=== PATIENT | male | born 1990 | race Hispanic/Latino ===

== ENCOUNTER → 2023-11-01 | Emergency (ER) | payer OTHER ==
[~2023-11-01] MED LIST: ACETAMINOPHEN 500 MG TAB ONE; METRONIDAZOLE 500mg IVPB 500 MG/100 ML BAG IV ONE; MORPHINE 4 MG/ML SYR ONE; NA CHLORIDE 0.9% 1,000 ML ONE; NA CHLORIDE 0.9% 100 ML ONE; PIPERACIL/TAZO 3.375 GM VIAL IV ONE
--- OUTSIDE RECORDS SUMMARY | 2023-11-01 14:57 | XMS REPORT | Continuity of Care Document ---
Author Name Unknown Address [address] [facility] [address] [place] [address] [facility] thconnect Address [address] [facility] [address] [place] [address] Care Team Providers Care Vehicle Delivery Worker Name Role Phone PCP, PATIENT DOES NOT HAVE A Primary Care Physic thomas Unavailable ANNABELLA RODRIGUEZ Attending Clinician Unavailable JAMIE GARCIA Attending Clinician Unavailable MD JAY JAY Attending Clinician Unavailab CHERYL Herndon Attending Clinician Unavailab VERONIKA Pascual Attending Clinician Unavailab Veronika Pascual DO Attending Clinician LIAT CLOUD Attending Clinician Unavailab le LAB03 Attending Clinician Unavailable KERRIE SOLIS Attending Clinician Unavailable Kerrie Solis MD Attending Clinician [phone] VERONIKA PITTS Admitting Clinician Unavailab KERRIE Joiner Admitting Clinician Unavailable Payers Payer Name Policy Type Policy Number Effective Date Expirati on Date Source [employer] [facility] [employer] 94 ON 9 [id number] 2023 00:00:00 [employer] COMMERCIAL OUT OF NETWORK [id number] 2023 00:00:00 Problems Condition Name Condition Details Condition Category Status Onset Date Resolution Date Last Treatment Date Treating Clinician Comments Source No known active problems No known active problems Disease [facility] Allergies, Adverse Reactions, Alerts Allergy Name Allergy Type Status Severity Reaction(s) Onset Date Inactive Date Treating Clinician Comments Source NO KNOWN ALLERGIE S Drug Class Active [facility] Social History Social Habit Start Date Stop Date Quantity Comments Source [facility] intake 2023-10-20 00:00:00 2023-10-20 00:00:00 Current drinker of alcohol (finding) Jeniffer Jones - External Tobacco use and exposure 2023-10-05 00:00:00 2023-10-05 00:00:00 Smokeless tobacco non-user Jeniffer Jones - External History of Social function 2023-10-05 00:00:00 2023-10-05 00:00:00 Jeniffer Jones - External Alcohol Comment 2023-10-05 00:00:00 2023-10-05 00:00:00 ocass. Jeniffer Jones - External Exposure to SARS-CoV-2 (event) 2022-03-18 00:00:00 2022-03-28 22:40:00 Not sure [facility] Sex Assigned At 1990 00:00:00 1990 00:00:00 Jeniffer Jones - External Smoking Status Start Date Stop Date Source Tobacco smoking consumption unknown [facility] Never smoked tobacco Jeniffer Jones - External Medications Ordered Medication Name Filled Medication Name Start Date Stop Date Current Medication? Ordering Clinician Indication Dosage Frequency Signature (SIG) Comments Components Source TRIMETHOPRI M-SULFAMETH OXAZOLE (Bactrim DS) 800-160 MG oral Tablet 10-20 00:00: 00 10-27 05:59 :00 Yes 1{tbl} Take 1 tablet by mouth every 12 hours for 7 days. Jeniffer Jones - Externa l Tramadol HCl (ULTRAM) 50 MG oral Tablet 10-20 00:00: 00 10-26 05:59 :00 Yes [id number] 50mg Q.25D Take 1 tablet (50 mg total) by mouth every 6 hours as needed for pain for up to 6 days. Jeniffer monsalve amoxicillin -clavulanat e (AUGMENTIN) 875-125 mg per tablet 1 tablet 10-09 06:45: 00 10-09 06:22 :00 No 1{tbl} 1 tablet, Oral, ONCE, 1 dose, On 10/09/23 at 0045, Routine
Reason for Anti-Infec tive: Documented Infection< br>Documen pao Infection Site: Abdominal< br>Duratio n of Therapy: 7 days [facility] iopamidol (ISOVUE 370-500 mL) injection 90 mL 10-09 05:45: 00 10-09 05:45 :00 No [id number] 90mL 90 mL, Intravenou s, ONCE, 1 dose, On Wed10/08/23 at 2345, Routine [facility] amoxicillin -clavulanat e 875-125 mg per tablet 10-08 00:00: 00 10-19 05:59 :00 Yes [id number] 1{tbl} Take 1 tablet by mouth every 12 (twelve) hours for 10 days. [facility] cefTRIAXone (ROCEPHIN) 350 mg/mL in Lidocaine 1 % injection 1,000 mg 10-06 03:00: 00 10-06 03:00 :00 Yes 1000mg 1,000 mg, Intramuscu lar, ONCE, 1 dose, On Wed10/05/23 at 2100, MICHELLE
Re ason for Anti-Infec tive: Documented Infection< br>Documen pao Infection Site: Urine
D uration of Therapy: Other (see Comments) [facility] Nitrofurant oin Monohyd Macro (Macrobid) 100 MG oral Capsule 10-06 00:00: 00 Yes [id number] 100mg Take 1 capsule (100 mg total) by mouth 2 times daily. Jeniffer monsalve cefUROXime 500 mg tablet 10-05 00:00: 00 10-16 05:59 :00 Yes [id number] 500mg Take 1 tablet by mouth in the morning and 1 tablet in the evening. Do all this for 10 days. [facility] cefUROXime 500 mg tablet 13 00:00: 00 10-08 00:00 :00 No [id number] 500mg Take 1 tablet by mouth in the morning and 1 tablet in the evening. Do all this for 10 days. [facility] iopamidol (ISOVUE 370-500 mL) injection 60 mL 03-29 06:45: 00 03-29 06:45 :00 No [id number] 60mL 60 mL, Intravenou s, ONCE, 1 dose, On 03/29/22 at 0145, Routine [facility] piperacilli n-tazobacta m (ZOSYN) 3.375 g in NaCl 0.9% (NS) 50 mL MINI-BAG 03-29 06:30: 00 03-29 07:05 :00 No 3.375g 3.375 g, IV Piggyback, ONCE, 1 dose, On 03/29/22 at 0130, Administer over 30 Minutes, 50 mL
Reas on for Anti-Infec tive: Documented Infection< br>Documen pao Infection Site: Abdominal< br>Duratio n of Therapy: Other (see Comments) [facility] ketorolac (TORADOL) injection 30 mg 03-29 06:00: 00 03-29 05:08 :00 No 30mg 30 mg, Slow IV Push, ONCE, 1 dose, On 03/29/22 at 0100, Routine [facility] amoxicillin -clavulanat e 875-125 mg per tablet 03-29 00:00: 00 Yes [id number] 1{tbl} Take 1 tablet by mouth every 12 (twelve) hours. [facility] ondansetron (ZOFRAN) 4 mg tablet 03-29 00:00: 00 Yes [id number] 4mg Take 1 tablet by mouth every 8 (eight) hours as needed for Nausea and Vomiting (N/V). [facility] traMADoL (ULTRAM) 50 mg tablet 03-29 00:00: 00 Yes [id number] 50mg Take 1 tablet by mouth every 6 (six) hours as needed for Pain (scale 7-10). Indication s: acute pain [facility] amoxicillin -clavulanat e 875-125 mg per tablet 8 00:00: 00 Yes [id number] 1{tbl} Take 1 tablet by mouth every 12 (twelve) hours. [facility] ondansetron (ZOFRAN) 4 mg tablet 03-29 00:00: 00 Yes [id number] 4mg Take 1 tablet by mouth every 8 (eight) hours as needed for Nausea and Vomiting (N/V). [facility] traMADoL (ULTRAM) 50 mg tablet 03-29 00:00: 00 Yes [id number] 50mg Take 1 tablet by mouth every 6 (six) hours as needed for Pain (scale 7-10). Indication s: acute pain [facility] amoxicillin -clavulanat e 875-125 mg per tablet 03-29 00:00: 00 10-08 00:00 :00 No [id number] 1{tbl} Take 1 tablet by mouth every 12 (twelve) hours. [facility] ondansetron (ZOFRAN) 4 mg tablet 03-29 00:00: 00 10-08 00:00 :00 No [id number] 4mg Take 1 tablet by mouth every 8 (eight) hours as needed for Nausea and Vomiting (N/V). [facility] traMADoL (ULTRAM) 50 mg tablet 03-29 00:00: 00 10-08 00:00 :00 No [id number] 50mg Take 1 tablet by mouth every 6 (six) hours as needed for Pain (scale 7-10). Indication s: acute pain [facility] amoxicillin -clavulanat e 875-125 mg per tablet 8- 00:00: 00 03-29 00:00 :00 No [id number] 1{tbl} Take 1 tablet by mouth every 12 (twelve) hours. [facility] traMADoL (ULTRAM) 50 mg tablet 03-29 00:00: 00 03-29 00:00 :00 No [id number] 50mg Take 1 tablet by mouth every 6 (six) hours as needed for Pain (scale 7-10). Indication s: acute pain [facility] ondansetron (ZOFRAN) 4 mg tablet 03-29 00:00: 00 03-29 00:00 :00 No [id number] 4mg Take 1 tablet by mouth every 8 (eight) hours as needed for Nausea and Vomiting (N/V). [facility] methocarbam ol (ROBAXIN) 500 mg tablet 2018-08 00:00: 00 Yes [id number] 500mg Take 1 tablet by mouth 3 (three) times daily as needed for Pain (scale 4-6). [facility] ibuprofen 600 mg tablet 2018-08 00:00: 00 Yes [id number] 600mg Take 1 tablet by mouth every 6 (six) hours as needed for Pain (scale 4-6). [facility] methocarbam ol (ROBAXIN) 500 mg tablet 2018-08 00:00: 00 Yes [id number] 500mg Take 1 tablet by mouth 3 (three) times daily as needed for Pain (scale 4-6). [facility] ibuprofen 600 mg tablet 2018-08 00:00: 00 Yes [id number] 600mg Take 1 tablet by mouth every 6 (six) hours as needed for Pain (scale 4-6). [facility] methocarbam ol (ROBAXIN) 500 mg tablet 2018-08 00:00: 00 10-08 00:00 :00 No [id number] 500mg Take 1 tablet by mouth 3 (three) times daily as needed for Pain (scale 4-6). [facility] ibuprofen 600 mg tablet 2018-08 00:00: 00 10-08 00:00 :00 No [id number] 600mg Take 1 tablet by mouth every 6 (six) hours as needed for Pain (scale 4-6). [facility] methylPREDN ISolone (MEDROL, TANNER,) 4 mg tablets 2018-08 00:00: 00 Yes [id number] Take by mouth SEE-INSTRU CTIONS. follow package directions [facility] methylPREDN ISolone (MEDROL, TANNER,) 4 mg tablets 2018-08 00:00: 00 Yes [id number] Take by mouth SEE-INSTRU CTIONS. follow package directions [facility] methylPREDN ISolone (MEDROL, TANNER,) 4 mg tablets 2018-08 00:00: 00 10-08 00:00 :00 No [id number] Take by mouth SEE-INSTRU CTIONS. follow package directions [facility] Vital Signs Vital Name Observation Time Observation Value Comments S anabellce Systolic blood pressure 2023-10-20 20:56:00 108 mm[Hg] Jeniffer Flores ld - External Diastolic blood pressure 2023-10-20 20:56:00 70 mm[Hg] Jeniffer ambrose - External Heart rate 2023-10-20 20:56:00 101 /min Rhett Jones - External Body temperature 2023-10-20 20:56:00 37 Maritza Jeniffer Jones - External Respiratory rate 2023-10-20 20:56:00 16 /min Jeniffer Jones - External Body height 2023-10-20 20:56:00 175.3 cm Karena mooney alma delia - External Body weight 2023-10-20 20:56:00 92.08 kg Karena Jones - External BMI 2023-10-20 20:56:00 29.98 kg/m2 Karena Jones - External Oxygen saturation in Arterial blood by Pulse oximetry 2023-10-20 20:56:00 99 /min Jeniffer ambrose - External Respiratory rate 2023-10-09 06:22:00 20 /min [facility] Oxygen saturation in Arterial blood by Pulse oximetry 2023-10-09 06:22:00 100 /min [facility] Systolic blood pressure 2023-10-09 06:22:00 128 mm[Hg] [facility] Diastolic blood pressure 2023-10-09 06:22:00 82 mm[Hg] [facility] Heart rate 2023-10-09 06:22:00 98 /min [facility] Body temperature 2023-10-09 06:22:00 37.44 Maritza [facility] Body height 2023-10-09 03:26:00 175.3 cm [facility] Body weight 2023-10-09 03:26:00 92.987 kg [facility] BMI 2023-10-09 03:26:00 30.27 kg/m2 [facility] Systolic blood pressure 2023-10-06 00:29:00 153 mm[Hg] [facility] Diastolic blood pressure 2023-10-06 00:29:00 97 mm[Hg] [facility] Heart rate 2023-10-06 00:29:00 83 /min [facility] Body temperature 2023-10-06 00:29:00 36.61 Maritza [facility] Respiratory rate 2023-10-06 00:29:00 18 /min [facility] Body height 2023-10-06 00:29:00 175.3 cm [facility] Body weight 2023-10-06 00:29:00 92.987 kg [facility] BMI 2023-10-06 00:29:00 30.27 kg/m2 [facility] Oxygen saturation in Arterial blood by Pulse oximetry 2023-10-06 00:29:00 99 /min [facility] Systolic blood pressure 2023-10-05 16:37:00 116 mm[Hg] Jeniffer Sanzybo ld - External Diastolic blood pressure 2023-10-05 16:37:00 78 mm[Hg] Jeniffer Seybo ld - External Heart rate 2023-10-05 16:37:00 71 /min Rhett steele Seybold - External Body temperature 2023-10-05 16:37:00 36.33 Maritza Jeniffer Seybold - External Respiratory rate 2023-10-05 16:37:00 18 /min Jeniffer Seybold - External Body height 2023-10-05 16:37:00 175.3 cm Karena mooney Seybold - External Body weight 2023-10-05 16:37:00 93.078 kg Karena Jones - External BMI 2023-10-05 16:37:00 30.30 kg/m2 Karena Jones - External Oxygen saturation in Arterial blood by Pulse oximetry 2023-10-05 16:37:00 97 /min Jeniffer Flores ld - External Systolic blood pressure 2022-03-29 06:00:00 124 mm[Hg] [facility] Diastolic blood pressure 2022-03-29 06:00:00 74 mm[Hg] [facility] Heart rate 2022-03-29 06:00:00 92 /min [facility] Body temperature 2022-03-29 06:00:00 37.44 Maritza [facility] Respiratory rate 2022-03-29 06:00:00 18 /min [facility] Oxygen saturation in Arterial blood by Pulse oximetry 2022-03-29 06:00:00 95 /min [facility] Body height 2022-03-29 03:38:00 175.3 cm [facility] Body weight 2022-03-29 03:38:00 79.379 kg [facility] BMI 2022-03-29 03:38:00 25.84 kg/m2 [facility] Procedures Procedure Date / Time Performed Performing Clinicia n Source CT ABDOMEN PELVIS W CONTRAST 2023-10-09 04:56:16 Veronika Pitts [facility] COMP. METABOLIC PANEL ([id number]) 2023-10-09 04:01:00 Veronika Pitts [facility] CBC WITH DIFF 2023-10-09 04:01:00 [facility]EF[facility] 2023-10-09 03:42:35 Docto r Unassigned, Haena [facility] CONSENT/REFUSAL FOR DIAGNOSIS AND TREATMENT 2023-10-09 03:17:28 Doctor Unassigned, Haena [facility] ASSIGNMENT OF BENEFITS 2023-10-06 01:49:21 Docto r Unassigned, Haena [facility] URINALYSIS 2023-10-06 00:53:00 Veronika Pitts Un [facility] NOTICE OF PRIVACY PRACTICES 2023-10-06 00:19:42 Doctor Unassigned, Haena [facility] CONSENT/REFUSAL FOR DIAGNOSIS AND TREATMENT 2023-10-06 00:18:43 Doctor Unassigned, Haena [facility] CT ABDOMEN PELVIS W CONTRAST 2022-03-29 05:32:05 Kerrie Solis [facility] LIPASE 2022-03-29 04:57:00 Kerrie Solis [facility] COMP. METABOLIC PANEL ([id number]) 2022-03-29 04:57:00 Kerrie Solis [facility] CBC WITH DIFF 2022-03-29 04:57:00 Kerrie Solis [facility] URINALYSIS 2022-03-29 04:57:00 Kerrie Solis [facility] NOTICE OF PRIVACY PRACTICES 2022-03-29 03:32:21 Doctor Unassigned, Haena [facility] CONSENT/REFUSAL FOR DIAGNOSIS AND TREATMENT 2022-03-29 03:31:15 Doctor Unassigned, Haena [facility] Encounters Start Date/Time End Date/Time Encounter Type Admission Type Attending [facility] Care Facility Care Department Encounter ID Source 2023-11-10 08:30:00 2023-11-10 08:30:00 Outpatient ANNABELLA RODRIGUEZ [id number] [facility] 00:00:00 2023-11-01 00:00:00 Outpatient JAMIE GARCIA [id number] Jeniffer [facility] 2023-10-29 13:35:00 2023-10-29 13:35:00 Outpatient JENIFFER MCKINLEY [id number] [facility]iffer [facility] 2023-10-29 00:00:00 2023-10-29 00:00:00 Outpatient JENIFFER MCKINLEY [id number] [facility]23-10-22 14:30:00 2023-10-22 14:30:00 Outpatient JAMIE GARCIA [id number] Jeniffer [facility] 2023-10-21 00:00:00 2023-10-21 00:00:00 Outpatient MD [facility]IFFER HAGER [id number] [facility] 15:00:00 2023-10-20 15:00:00 Outpatient JENNIFER ANNABELLAVera MCKINLEY [id number] [facility] 2023-10-12 00:00:00 2023-10-12 00:00:00 Outpatient CHERYL SEYMOUR [id number] Jeniffer [facility] 2023-10-12 00:00:00 2023-10-12 00:00:00 Outpatient MD JENIFFER HAGER [id number] Jeniffer [facility] 2023-10-08 21:46:00 2023-10-09 00:23:00 Emergency X VERONIKA PITTS [facility] E[facility] [id number] [facility] 2023-10-08 21:46:00 2023-10-09 00:23:00 Emergency Veronika Pitts [facility] [id number] 4.2.7.2.686 [id number] [facility] 2023-10-06 00:00:00 2023-10-06 00:00:00 Outpatient CHERYL SEYMOUR [id number] Jeniffer [facility] 2023-10-05 18:33:00 2023-10-05 20:12:00 Emergency X ADELIAT TY [facility] E[facility] [id number] [facility] 2023-10-05 18:33:00 2023-10-05 20:12:00 Emergency AderiTania ochoarisa [facility] [id number] 350.1.13.10 4.2.7.2.686 [id number] [facility] 2023-10-05 11:30:00 2023-10-05 11:30:00 Outpatient LAB03 JENIFFER MCKINLEY [id number] [facility] 2023-10-05 10:45:00 2023-10-05 10:45:00 Outpatient CHERYL SEYMOUR [id number] Jeniffer Jones 2022-03-28 22:43:00 2022-03-29 02:14:00 Emergency X KERRIE SOLIS [facility] E[facility] [id number] [facility] 2022-03-28 22:43:00 2022-03-29 02:14:00 Emergency Kerrie Solis [facility] [id number] 350.1.13.10 4.2.7.2.686 [id number] [facility] Results Test Description Test Time Test Comments Results Resul t Comments Source CT ABDOMEN PELVIS W CONTRAST 2023-09-23 05:46:51 EXAM: CT ABDOMEN PELVIS W CONTRAST ORDERING CLINICIAN: ? ?VERONIKA ALVARADO HISTORY: Abdominal Pain. COMPARISON: 03/29/2022 TECHNIQUE: CT of the abdomen and pelvis with IV contrast. Coronal andsagittal reformatted images were obtained. CT performed according to [facility]. TECHNICAL QUALITY: Adequate CT OF THE ABDOMEN WITH IV CONTRAST:There is minimal basilar atelectasis. ? There is mild diffuse fatty infiltration of the liver. ?The gallbladder isnormal. The spleen is normal. The pancreas is normal. The adrenals arenormal. ?The kidneys are normal. The intraabdominal large and small bowelare normal. The appendix is seen in the right lower quadrant and is normal.The intra-abdominal vasculature is normal. There is no free fluid. ?Thereis no free air or pathologic lymphadenopathy. CT OF THE PELVIS WITH IV CONTRAST:Scattered diverticula are seen in the sigmoid. There is diffuse wallthickening with surrounding inflammatory changes of the mid sigmoid.Ill-defined fluid attenuation is noted in the wall of the mid sigmoid.There is no free air. The distal sigmoid and rectum appear unremarkable.Prosta te is normal in size. The distal ureters and bladder are normal. ?Asmall amount of fluid is seen in the pelvis. Soft tissues are unremarkable. Osseous structures are unremarkable. [facility] ([id number])2023-10-09 04:34:45* Test Item Value Reference Range Interpretation Comme nts NA (test code = 2011354117) 137 mmol/L 135-145 K (test code = 8514620647) 4.0 mmol/L 3.5-5.0 CL (test code = 7520786421) 104 mmol/L 98-108 CO2 TOTAL (test code = 2590456595) 24 mmol/L 23-31 AGAP (test code = 6083702286) 9 2-16 BUN (test code = 4152792117) 19 mg/dL 7-23 GLUCOSE (test code = 8713824036) 107 mg/dL 70-110 CREATININE (test code = 2160-0) 0.75 mg/dL 0.60-1.25 TOTAL BILI (test code = 6080962290) 0.6 mg/dL 0.1-1.1 CALCIUM (test code = 9006889103) 9.4 mg/dL 8.6-10.6 T PROTEIN (test code = 4159222866) 8.6 g/dL 6.3-8.2 H ALBUMIN (test code = 8637556387) 4.8 g/dL 3.5-5.0 ALK PHOS (test code = 2307956803) 108 U/L 34-122 ALTv (test code = 1742-6) 43 U/L 5-50 AST(SGOT) (test code = 9413616499) 26 U/L 13-40 eGFR (test code = 72132-0) 123.0 mL/min/1.73m2 CKD-EPI eGFR (2020). Assuming creatinine has been stable day-to-day for at least three months, the eGFR indicates Category G1 (>= 90 mL/min/1.73 m2) Lab Interpretation (test code = 23413-1) Abnormal [facility] Notes Date/Time Note Provider Source 2023-10-20 14:58:21 qYYDuMuc9mgaOfiH67xMdyoXsi20mKXRsHuJo OS+19gIQcp5sn6p7B3IwyDYhwVY1332-56-35 T14:58:21 Chief ComplaintPatient presents withJaye Dye NCMA 94379-8Tgagj YgzrPV1531-50-53U46:59:54Nurse NoteTXT1.2.840.423852.1.13.131.2.7.2. 184836|[id number] for patient tglm19370-8Tvvbe NoteLNNARRATIVEFormatted C-CDA narrative textBHARATIProMedica Flower Hospital2727 [facility].[id number] 7968-96-49V97:59:541.2.840.420376.1.7 2.3.15|1.2.840.731201.1.13.131.2.7.2. 727879_[id number] [facility] 2023-10-09 00:22:00 ppR97OqkbJqLJNDXNXzMmyn1iVkUYOTtJ9n6u xZQQNp2+GRfD88cYhvOIehjSdm04972-33-68 T00:22:00 Pt given printed and verbal discharge instructions regarding diverticulitis, encouraged hydration.Prescriptions provided.Discussed antibiotic therapy and to take until all completed unless adverse reaction occurs - if occurs, discontinue medication and follow up with pcp/seek medical attentionPt verbalized understanding of instructions, pt awake alert oriented, resp reg unlabored, skin w/d, color appropriate for race, moves all ext well,pt encouraged to follow up with pcp.Advised to seek medical attention for new/prolonged/worsening of symptoms.No adverse reaction to meds given in ER noted upon discharge.PIV d'cd, dressing to site, catheter in tact.Awake, alert oriented, resp reg unlabored, skin w/d, pt leaving amb with steady gait, in no apparent distress. 38128-6Rtbxgpqvj department GxvdGY9527-96-10X41:02:33[facility] NoteTXT1.2.840.546403.1.13.104.2.7.2. 486929|[id number] for patient gxcn03983-6BpazTLBRXDCQVSUWyibrjjkp C-CDA narrative [id number] L Jorge RNUT[address] [id number] QUFCRAHNXWTWPNGUSLCNV8155-30-23L32:02 :331.2.840.648105.1.72.3.15|1.2.840.1 [id number] 8 Latanya Monsalve Jorge RN [facility] 2023-10-08 21:29:26 sz9BogfNDJV94GQjTA+UiUQ4to/gAIBmTAEfC WmtyxcZaqAKZz1E2NG5rBbxXd+w0584-66-19 T21:29:26 Pt given urine cup and placed in the lobby, pt advice to notify nurse with any other concerns or if symptoms worsen. 70784-0Alisgganf department MvacQJ5316-76-38L91:29:41[facility] NoteTXT1.2.840.886327.1.13.104.2.7.2. 840715|[id number] for patient bozn04114-6WokrMRLQYZDLBICRugcadsdc C-CDA narrative text[address] [id number] ULXMDUHOJFUOTASTIEUBG8000-13-37I99:29 :411.2.840.096437.1.72.3.15|1.2.840.1 74188.1.13.104.2.7.2.727879_[id number] 6 [facility] 2023-10-08 21:25:15 8QUKGwoX8M653dMVeQSdvDvF+Gd8zHcjB9UMb iadwNz1jEaRg55dt0IQRCQtAN2Y1209-49-11 T21:25:15 C/O lower abd pain that started today around 1700, pt was dx with Uti and placed on Macobid on 10/06/2023. 97543-8Ghqrhvkng department Triage tymrTC4081-70-52A40:26:04[facility] department Triage noteTXT1.2.840.079764.1.13.104.2.7.2. 596680|[id number] for patient cxtt71077-9Dodvwjffw department NoteLNNARRATIVEFormatted C-CDA narrative [id number] J Hoot RN53 Hunt StreetXccf[id number] AONANBNEQOSHUJJZPQAJF2407-08-45Z24:26 :041.2.840.270162.1.72.3.15|1.2.840.1 00202.1.13.104.2.7.2.727879_[id number] 8 Cintia Long RN [facility] 2023-10-08 21:16:00 gcU/SEGh6FSjLbfY+ot7BUcoiAVw6u4NqhN/g 3H9m9RZNxXz4SbjgZy8GM0EeLFa5698-51-04 T21:16:00 [facility] Emergency Department NotePatient Name: Gilberto England of : 1990 32 year old maleTreatment Room: Room/bed info not foundMedical Record Number: [id number] Care Physician: PATIENT DOES NOT HAVE A PCPPatient Escorted by: Self [9]Mode of Arrival: Personal means [1]EMS Treatment Prior to ED Arrival:MASTER SHIP treatment: NoneTravel and Exposure Screening:SymptomsDoes patient have any of these symptoms?: (not recorded)Exposure ScreeningHas patient had contact with someone with a communicable disease in the last month?: (not recorded)Diseases exposed to:: (not recorded)Is Patient ?: (not recorded)Exposure Date: (not recorded)Chief Complaint:Chief ComplaintPatient presents withPelvic PainHistory of Present Illness:The patient presents from home for evaluation for lower abdominal pain that started around noon today. The pain has been constant does not radiate to his back. No nausea or vomiting. No fevers or chills. No diarrhea. No dysuria hematuria. He was seen here on October 05 and diagnosed with a UTI. He has been on Macrobid twice a day since then and admits to compliance with his medication. No other medication taken for pain. He denies any prior abdominal surgeries.Here for evaluation.Past Medical History/Immunizations:History reviewed. No pertinent past medical history.Tetanus received in last 5 years: NoChildhood immunizations: Fc-je-vetgRvatglhyh:No Known AllergiesPast Social History:Substance & Sexual ActivityNo substance use or sexual activity history on file.Past Surgical History:History reviewed. No pertinent surgical history.Review of Systems:Review of SystemsConstitutional: Negative for chills and fever.HENT: Negative for facial swelling.Respiratory: Negative for cough and shortness of breath.Cardiovascular: Negative for chest pain.Gastrointestinal: Positive for abdominal pain. Negative for nausea and vomiting.Genitourinary: Negative for dysuria.Musculoskeletal: Negative for arthralgias and neck stiffness.Skin: Negative for wound.Neurological: Negative for dizziness.Psychiatric/Behavioral: Negative for agitation.Endocrine: Negative for goiter.Physical Exam:ED Triage Vitals [10/08/232125]Weight 93 kg (205 lb)Actual or estimatedHeight 1.753 m (5' 9")BP 131/88Pulse 101Resp 18TempTemp source OralSpO2 100 %Measured on Room airPhysical ExamVitals and nursing note reviewed.Constitutional:Appearance: Normal appearance.HENT:Head: Normocephalic and atraumatic.Mouth/Throat:Mouth: Mucous membranes are dry.Cardiovascular:Rate and Rhythm: Normal rate.Pulses: Normal pulses.Pulmonary:Effort: Pulmonary effort is normal.Abdominal:General: There is no distension.Palpations: Abdomen is soft.Tenderness: There is abdominal tenderness (mild LLQ). There is no guarding or rebound.Musculoskeletal:General: Normal range of motion.Cervical back: Normal range of motion and neck supple.Skin:General: Skin is warm and dry.Neurological:General: No focal deficit present.Mental Status: He is alert and oriented to person, place, and time.Radiology:CT ABDOMEN PELVIS W CONTRASTFinal ResultEXAM: CT ABDOMEN PELVIS W CONTRASTORDERING CLINICIAN: VERONIKA PITTSHISTORY: Abdominal Pain.COMPARISON: 03/29/2022TECHNIQUE: CT of the abdomen and pelvis with IV contrast. Coronal andsagittal reformatted images were obtained. CT performed according to ALAplatte valley medical centerciples.TECHNICAL QUALITY: AdequateCT OF THE ABDOMEN WITH IV CONTRAST:There is minimal basilar atelectasis.There is mild diffuse fatty infiltration of the liver. The gallbladder isnormal. The spleen is normal. The pancreas is normal. The adrenals arenormal. The kidneys are normal. The intraabdominal large and small bowelare normal. The appendix is seen in the right lower quadrant and isnormal.The intra-abdominal vasculature is normal. There is no free fluid. Thereis no free air or pathologic lymphadenopathy.CT OF THE PELVIS WITH IV CONTRAST:Scattered diverticula are seen in the sigmoid. There is diffuse wallthickening with surrounding inflammatory changes of the mid sigmoid.Ill-defined fluid attenuation is noted in the wall of the mid sigmoid.There is no free air. The distal sigmoid and rectum appear unremarkable.Prostate is normal in size. The distal ureters and bladder are normal. Asmall amount of fluid is seen in the pelvis.Soft tissues are unremarkable. Osseous structures are unremarkable.IMPRESSION1. Scattered diverticula in the sigmoid. Diffuse wall thickening withsurrounding inflammatory changes of the sigmoid compatible with acutediverticulitis. Is no evidence of perforation. There is questionableill-defined fluid attenuation the wall of the sigmoid. A developingintramural abscess cannot be excluded. Underlying mass is felt lesslikely,but not entirely excluded. Follow-up endoscopy should be considered if notpreviously performed.2. Mild fatty infiltration of the liver.RL: 1890AFC: [id number] of Report Lab Results:Lab ResultsCBC WITH DIFF - AbnormalResult Value Ref RangeWBC 21.76 (*) 4.20 - 10.70 10*3/?LRBC 5.01 4.26 - 5.52 10*6/?LHGB 15.6 12.2 - 16.4 g/dLHCT 44.2 38.4 - 49.3 %MCV 88.2 81.7 - 95.6 fLMCH 31.1 26.1 - 32.7 pgMCHC 35.3 (*) 31.2 - 35.0 g/dLRDW-SD 38.6 38.5 - 51.6 fLRDW-CV 12.1 12.1 - 15.4 %PLT 296 150 - 328 10*3/?LMPV 10.9 9.8 - 13.0 fLNRBC/100 WBC 0.0 0.0 - 10.0 /100 WBCsNRBC x10^3 <0.01 10*3/?LSEG % 89 (*) 33 - 76 %BAND % 4 (*) 0 - 1 %META % 1 (*) <=0 %LYMPH % 5 (*) 14 - 54 %MONO % 1 0 - 4 %PLT ESTIMATE Normal NormalGIANT PLATELETS Present (*) (none)COMP. METABOLIC PANEL (36725) - AbnormalNA 137 135 - 145 mmol/LK 4.0 3.5 - 5.0 mmol/LCL 104 98 - 108 mmol/LCO2 TOTAL 24 23 - 31 mmol/LAGAP 9 2 - 16BUN 19 7 - 23 mg/dLGLUCOSE 107 70 - 110 mg/dLCREATININE 0.75 0.60 - 1.25 mg/dLTOTAL BILI 0.6 0.1 - 1.1 mg/dLCALCIUM 9.4 8.6 - 10.6 mg/Pam PROTEIN 8.6 (*) 6.3 - 8.2 g/dLALBUMIN 4.8 3.5 - 5.0 g/dLALK PHOS 108 34 - 122 U/LALTv 43 5 - 50 U/LAST(SGOT) 26 13 - 40 U/LeGFR 123.0 mL/min/1.51m8MKF:If EKG completed, see Procedure Note.Orders and Treatments:Orders Placed This EncounterProceduresCT ABDOMEN PELVIS W CONTRASTCBC WITH DIFFCOMP. METABOLIC PANEL (43295)Orders Placed This EncounterMedicationsiopamidol (ISOVUE 370-500 mL) injection 90 mLamoxicillin-clavulanate (AUGMENTIN) 875-125 mg per tablet 1 tabletamoxicillin-clavulanate 875-125 mg per tabletFirst Provider Eval:ED EventsDate/Time Event User Xqowokgi78/16/242123 Medical Screening Begins VERONIKA PITTS DO --10/08/232123 First Provider Evaluation VERONIKA PITTS DO --ED COURSEDiagnosis/Impression as of 10/08/23 2357Left lower quadrant abdominal painLeukocytosis, unspecified typeDiverticulitisProcedures:Procedur esMDM:Medical Decision MakingThe patient presents from home for evaluation for lower abdominal pain that started around noon today after eating a rice bowl at lunch. The pain has been constant does not radiate to his back or groin. No nausea or vomiting. No fevers or chills. He has been on Macrobid twice a day for UTI he was diagnosed with on October 05.Vital signs are stable in the ER.His abdomen is soft with mild tenderness to his left lower quadrant.Differential diagnosis includes UTI, pyelonephritis, diverticulitis.Will check laboratory studies and obtain a CT of his abdomen and pelvis.Anticipate discharge home later.2354 - the patient is doing well here in the EC.Laboratory studies show leukocytosis.CT a/p shows diverticulitis but no diverticulosis.Will treat with antibiotics.He remains stable here in the EC and is ok for dc home with pcp f/u.Problems Addressed:Diverticulitis: acute illness or injuryLeft lower quadrant abdominal pain: acute illness or injuryLeukocytosis, unspecified type: acute illness or injuryAmount and/or Complexity of Data ReviewedLabs: ordered. Decision-making details documented in ED Course.Radiology: ordered and independent interpretation performed. Decision-making details documented in ED Course.RiskOTC drugs.Prescription drug management.Flowsheet Documentation:Scoring Tools:No data recordedDisposition/Condition:ED DispositionED DispositionDisch - HomeConditionStableComment--Discharge Medications:Patient's MedicationsSTART taking these medicationsAMOXICILLIN-CLAVULANATE 875-125 MG PER TABLET Take 1 tablet by mouth every 12 (twelve) hours for 10 days.CONTINUE taking these medications which have NOT CHANGEDNo medications on fileSTART taking Modified Medications as PrescribedNo medications on fileSTOP taking these medicationsAMOXICILLIN-CLAVULANATE 875-125 MG PER TABLET Take 1 tablet by mouth every 12 (twelve) hours.CEFUROXIME 500 MG TABLET Take 1 tablet by mouth in the morning and 1 tablet in the evening. Do all this for 10 days.IBUPROFEN 600 MG TABLET Take 1 tablet by mouth every 6 (six) hours as needed for Pain (scale 4-6).METHOCARBAMOL (ROBAXIN) 500 MG TABLET Take 1 tablet by mouth 3 (three) times daily as needed for Pain (scale 4-6).METHYLPREDNISOLONE (MEDROL, TANNER,) 4 MG TABLETS Take by mouth SEE-INSTRUCTIONS. follow package directionsONDANSETRON (ZOFRAN) 4 MG TABLET Take 1 tablet by mouth every 8 (eight) hours as needed for Nausea and Vomiting (N/V).TRAMADOL (ULTRAM) 50 MG TABLET Take 1 tablet by mouth every 6 (six) hours as needed for Pain (scale 7-10). Indications: acute painFollow-up:Electronically signed by:Veronika Pitts DO10/08/23 2357 90439-1Ikkmvcpbo Emergency department RqmvNG9567-06-43V12:57:40[facility] Emergency department NoteTXT1.2.840.199194.1.13.104.2.7.2. [id number] for patient riam42600-6Hmdrjsjsf department NoteLNNARRATIVEFormatted C-CDA narrative text[address] Au[id number] SHGVQDHIZIGOEFVVTJBNU1296-60-14M76:57 :401.2.840.927843.1.72.3.15|1.2.840.1 [id number] 4 [facility] 2023-10-05 20:11:32 FzxpT24VJIqUXorsFXGk4gL6TaPuITu0VZA4B suQw92CJNmLl1JwalIOAXXDVran7610-40-22 T20:11:32 Pt given printed and verbal discharge instructions regarding hematuria, UTI in men, encouraged hydration.Prescriptions provided.Discussed antibiotic therapy and to take until all completed unless adverse reaction occurs - if occurs, discontinue medication and follow up with pcp/seek medical attention.Pt verbalized understanding of instructions, pt awake alert oriented, resp reg unlabored, skin w/d, color appropriate for race, moves all ext well,pt encouraged to follow up with pcp and urology.Advised to seek medical attention for new/prolonged/worsening of symptoms.No adverse reaction to meds given in ER noted upon dischargeAwake, alert oriented, resp reg unlabored, skin w/d, pt leaving amb with steady gait, in no apparent distress. 35586-3Lkaalgbxw department QptrUD1842-08-27Y74:12:35[facility] NoteTXT1.2.840.305158.1.13.104.2.7.2. 668016|[id number] for patient smcg14528-6JcmnCWHAGQLGREBQzrbwtxuf C-CDA narrative [id number] L Williams RNUT[address] Sz[id number] BDUXZUHLOHMRIMPOKRGTX6171-60-84J69:12 :351.2.840.374487.1.72.3.15|1.2.840.1 56568.1.13.104.2.7.2.727879_[id number] 5 Latanya Pitts RN [facility] 2023-10-05 18:25:43 OTvRJ0E2FpSdS9Jnc4S1wUUsIHN2oe+enkj+m POrVjyZ+8OnusLBTKEWXhV61RgQ5943-34-93 T18:25:43 Bleeding from penis when urinating. Endorses blood is bright red, began today. [facility] has had uncomfortable urination issues since first week of August. [facility] has unprotected sex with girlfriend, girlfriend is only sex partner. 91419-0Fzgfmbmts department Triage mkukEH5576-78-81Z04:32:35[facility] department Triage noteTXT1.2.840.325522.1.13.104.2.7.2. 586291|[id number] for patient blem85364-5Swtdxfsug department NoteLNNARRATIVEFormatted C-CDA narrative [id number] E Goodman RN[id number] BNHEOZZEVGNGMPBNREIAU5449-23-11C76:32 :351.2.840.241994.1.72.3.15|1.2.840.1 [id number] 0 Vashti Quezada RN [facility] 2023-10-05 10:35:23 TaAppQR/nwCZ47hJOql8/1sIkIsz9Hrw/11yH AEihsI5hITxCy5xI3x/6tzZvpr90549-39-09 T10:35:23 Chief ComplaintPatient presents [id number] (home)[place] [address]-4Rvhoh PbvtMX3744-68-14M43:38:33Nurse NoteTXT1.2.840.334088.1.13.131.2.7.2. 186647|[id number] for patient cgad42842-1Iitjd NoteLNNARRATIVEFormatted C-CDA narrative textKELSEYEPTwin City Hospital[address] [facility].[id number] 3803-67-02C46:38:331.2.840.271496.1.7 2.3.15|1.2.840.580760.1.13.131.2.7.2. [id number] [facility]
--- NOTE | 2023-11-01 16:57 | RAD REPORT ---
EXAM DESCRIPTION: CT - Abdomen Pelvis W Contrast - 11/01/2023 4:37 pm CLINICAL HISTORY: Abdominal pain COMPARISON: none. TECHNIQUE: Computed axial tomography of the abdomen pelvis was obtained. 100 cc Isovue-300 was admin istered intravenously. Oral contrast was not requested which limits evaluation of bowel and appendix All CT scans are performed using dose optimization technique as appropriate and may include automated exposure control or mA/KV adjustment according to patient size. FINDINGS: The liver, spleen, pancreas, adrenal and kidneys appear unremarkable. Wall of sigmoid colon is markedly thickened with marked stranding within the adjacent fat. Diverticul a stem from the sigmoid. An extraluminal air bubble is present. The sigmoid colon abuts the dome of t he bladder. There is air present within the bladder. Bladder wall is thickened. Small amount of ascites. IMPRESSION: Marked sigmoid diverticulitis with extraluminal air bubble. Thickening of the adjacent bladder wall and air in the bladder may indicate a fistula.
[2023-11-01 17:24] LABS: Absolute Lymphocytes (CBC) 0.8 K/uL (0.7-4.9); Basophils % 0.1 % (0-1.3); Hemoglobin 14.4 g/dL (13.6-17.9); Lymphocytes % 5.5 % (15.3-44.8); MCV 87.5 fL (80-100); MPV 9.6 fL (7.6-11.3); Platelets 222 thou/uL (152-406)
[2023-11-01 17:29] LABS: Protime INR 1.58
[2023-11-01 17:39] LABS: Albumin 3.4 g/dL (3.4-5.0); Albumin/Globulin Ratio 0.7 (1.1-1.8); Anion Gap 10.8 mEq/L (5.0-15.0); Bilirubin Total 0.9 mg/dL (0.2-1.0); Globulin 4.6 g/dL (2.3-3.5); Potassium 3.8 mEq/L (3.5-5.1)
[2023-11-01 17:55] LABS: SARS-CoV-2 Antigen Rapid Res Positive (Negative)
--- NOTE | 2023-11-01 18:20 | ER ---
Nurse's Notes [facility] Name: Gilberto Christine Age: 32 yrs Sex: Male : 1990 Arrival Date: 11/01/2023 Time: 14:55 Bed 4 Private MD: Diagnosis: SARS-associated coronavirus as the cause of diseases classified elsewhere;Urinary Bladder Fistula;Diverticulitis of Sigmoid Colon with Perforation Presentation: 10/31 15:22 Coronavirus screen: Vaccine status: Patient reports receiving the 2nd dose of the covid kd3 vaccine. Ebola Screen: No symptoms or risks identified at this time. Initial Sepsis Screen: Does the patient meet any 2 criteria? No. Patient's initial sepsis screen is negative. Does the patient have a suspected source of infection? No. Patient's initial sepsis screen is negative. Risk Assessment: Do you want to hurt yourself or someone else? Patient reports no desire to harm self or others. Onset of symptoms was October 29, 2023. 15:22 Method Of Arrival: Wheelchair kd3 15:22 Acuity: JORGE 3 kd3 15:24 Chief complaint: Patient states: I woke up this morning around 9 am with sharp kd3 abdominal pain. I have diverticulitis and I went to an urgent care and was in pain there. Urgent care told me to come here to get a CT scan because my vitals weren't right. Triage Assessment: 15:23 General: Appears ill, Behavior is calm, cooperative. Pain: Complains of pain in abdomen.kd3 15:24 GI: Reports lower abdominal pain. kd3 Historical: - Allergies: 15:23 No Known Allergies; kd3 - Home Meds: 17:27 None [Active]; aa5 - PMHx: 17:27 None; aa5 - Immunization history:: Adult Immunizations up to date. - Social history:: Smoking status: Reported history of juuling and/or vaping. Screenin:00 [facility] ED Fall Risk Assessment (Adult) History of falling in the last 3 months, aa5 including since admission No falls in past 3 months (0 pts) Confusion or Disorientation No (0 pts) Intoxicated or Sedated No (0 pts) Impaired Gait No (0 pts) Mobility Assist Device Used No (0 pt) Altered Elimination No (0 pt) Score/Fall Risk Level 0 - 2 = Low Risk Oriented to surroundings, Maintained a safe environment, Educated pt \T\ family on fall prevention, incl call for assistance when getting out of bed. Abuse screen: Denies threats or abuse. Nutritional screening: No deficits noted. Tuberculosis screening: No symptoms or risk factors identified. Assessment: 17:00 General: Appears uncomfortable, Behavior is calm, cooperative. Pain: Complains of pain aa5 in right lower quadrant and left lower quadrant Pain currently is 8 out of 10 on a pain scale. Quality of pain is described as sharp, Pain began this morning Is episodic, Aggravated by increased activity, repositioning. Neuro: Level of Consciousness is awake, alert, obeys commands, Oriented to person, place, time, situation. Cardiovascular: Heart tones S1 S2 present Patient's skin is warm and dry. Rhythm is regular. Respiratory: Airway is patent Respiratory effort is even, unlabored, Respiratory pattern is regular, symmetrical. GI: Abdomen is round non-distended, Bowel sounds present X 4 quads. Abdomen is tender to palpation in right lower quadrant and left lower quadrant Patient currently denies nausea, vomiting. : No signs and/or symptoms were reported regarding the genitourinary system. EENT: No signs and/or symptoms were reported regarding the EENT system. Derm: Skin is dry, Skin is pale, Skin temperature is warm. Musculoskeletal: Range of motion: intact in all extremities. 17:56 Neuro: Level of Consciousness is awake, alert, obeys commands, Oriented to person, aa5 place, time, situation. Respiratory: Airway is patent Respiratory effort is even, unlabored, Respiratory pattern is regular, symmetrical. Derm: Skin is dry, Skin is pale, Skin temperature is warm. 17:56 General: Appears uncomfortable. Pain: Pain currently is 8 out of 10 on a pain scale. aa5 18:18 Reassessment: 2nd set of blood cultures being collected by Alisha, from lab. . aa5 20:09 Reassessment: Patient appears in no apparent distress at this time. Patient and/or nj1 family updated on plan of care and expected duration. Pain level reassessed. Patient is alert, oriented x 3, equal unlabored respirations, skin warm/dry/pink. Patient denies pain at this time. 21:30 Reassessment: Patient appears in no apparent distress at this time. Patient and/or nj1 family updated on plan of care and expected duration. Pain level reassessed. Patient is alert, oriented x 3, equal unlabored respirations, skin warm/dry/pink. Patient denies pain at this time. 22:18 Reassessment: [facility] here to transport patient. Report given to Olu Serna EMTP. nj1 Vital Signs: 15:22 BP 128 / 76; Pulse 114; Resp 16; Temp 100.5; Pulse Ox 98% ; Weight 91.17 kg; Height 5 kd3 ft. 9 in. ; 15:28 Pulse 121; kd3 17:27 Pulse 100; Resp 18 S; Temp 100.9(O); Pulse Ox 97% on R/A; aa5 18:31 BP 129 / 74; Pulse 92; Resp 20 S; Temp 100.4(O); Pulse Ox 99% on R/A; aa5 19:00 BP 117 / 71; Pulse 87; Resp 17 S; Pulse Ox 97% on R/A; ha1 20:10 BP 117 / 71; Pulse 79; Resp 18; Temp 98.5(O); Pulse Ox 97% on R/A; nj1 21:40 BP 111 / 70; Pulse 67; Resp 17; Pulse Ox 97% on R/A; nj1 15:22 Body Mass Index 29.68 (91.17 kg, 175.26 cm) kd3 ED Course: 14:56 Patient arrived in ED. rg4 14:58 Jah Smith PA is PHCP. cp 14:58 Gallo Christine MD is Attending Physician. cp 15:23 Triage completed. kd3 15:24 Arm band placed on left wrist. kd3 16:38 CT Abd/Pelvis - IV Contrast Only In Process Unspecified. EDMS 17:00 Patient has correct armband on for positive identification. Placed in gown. sitting in aa5 internal wait recliner. 17:00 Inserted saline lock: 22 gauge in left upper arm, using aseptic technique. aa5 17:09 Initial lab(s) drawn, by me, sent to lab. First set of blood cultures drawn by me. aa5 17:10 COVID swab sent to lab. aa5 17:27 EKG done, by ED staff, reviewed by Jah MALIK. aa5 18:20 initiated transfer to [facility]. bd 18:20 Report given to JERICA Narvaez. aa5 18:23 Brice Diggs, JERICA is Primary Nurse. bp 19:36 Alda from transfer center called [facility] is at capacity. vk 20:00 initiated transfer with [facility] [place] spoke with PIERRE. vk 20:10 patient was accepted to [facility] to [address]B Rm [address] Pantera Costa per Pierre ashlyn Byrne. 21:40 Provided Education on: Need for transfer. nj1 22:00 Initiated transfer with EMS spoke with Spenser he advised 30 mins for transfer. vk 22:05 No provider procedures requiring assistance completed. Patient transferred, IV remains nj1 in place. 22:31 patient was picked by by EMS. vk Administered Medications: 17:18 Drug: NS 0.9% IV 1000 ml IV at 1 bolus Per protocol; 1000 mL bolus Route: IV; Rate: 1 aa5 bolus; Site: left upper arm; 17:56 Follow up: IV Status: Completed infusion; IV Intake: 1000ml aa5 17:56 Drug: Acetaminophen PO 1000 mg PO once Route: PO; aa5 18:31 Follow up: Response: No adverse reaction; Temperature is decreased aa5 17:56 Drug: NS 0.9% IV 1000 ml IV at 1 bolus Per protocol; 1000 mL bolus Route: IV; Rate: 1 aa5 bolus; Site: left upper arm; 18:31 Follow up: IV Status: Completed infusion; IV Intake: 1000ml aa5 20:00 Follow up: IV Status: Completed infusion; IV Intake: 1000ml nj1 18:57 Drug: Piperacillin-Tazobactam IVPB 3.375 grams IVPB once over 60 mins; (mix in NS 100 bp mL) Route: IVPB; Infused Over: 60 mins; Site: left antecubital; 20:00 Follow up: Response: No adverse reaction; IV Status: Completed infusion; IV Intake: nj1 100ml 18:57 Drug: morphine IVP or IV 4 mg IVP once over 4 mins Route: IVP; Infused Over: 4 mins; bp Site: left antecubital; 20:00 Follow up: Response: No adverse reaction; Pain is decreased nj1 18:58 Drug: metroNIDAZOLE IVPB 500 mg 100 ml IVPB once over 30 mins Volume: 100 ml; Route: bp IVPB; Infused Over: 30 mins; Site: left antecubital; 19:30 Follow up: Response: No adverse reaction; IV Status: Completed infusion; IV Intake: nj1 100ml Medication: 18:40 VIS not applicable for this client. aa5 Intake: 17:56 IV: 1000ml; Total: 1000ml. aa5 18:31 IV: 1000ml; Total: 2000ml. aa5 19:30 IV: 100ml; Total: 2100ml. nj1 20:00 IV: 1000ml; Total: 3100ml. nj1 20:00 IV: 100ml; Total: 3200ml. nj1 Outcome: 18:19 ER care complete, transfer ordered by MD. cp 21:44 Transferred by ground EMS to [facility], Transfer form nj1 completed. Note: Report called to nurse Reyes. 21:44 Condition: stable nj1 21:44 Instructed on the need for transfer, 22:31 Patient left the ED. jj7 Signatures: Dispatcher [employer] EDMS Jaida Schafer Audri, RN RN aa5 Jah Smith PA PA Melba Donald rg4 Brice Diggs RN RN bp Reanna Varghese, RN RN kd3 Pia Madison, RN RN ha1 David Mata RN RN jj7 Carlota Rock RN RN aditya1 Val Mcgovern Corrections: (The following items were deleted from the chart) 18:39 17:00 Reassessment: Patient is alert, oriented x 3, equal unlabored respirations, skin aa5 warm/dry/pink. aa5 20:15 20:10 BP 117 / 71; Pulse 79bpm; Resp 18bpm; Pulse Ox 97% RA; nj1 nj1
--- NOTE | 2023-11-01 18:20 | EDPHYS ---
Physician Documentation [facility] Name: Gilberto Christine Age: 32 yrs Sex: Male : 1990 Arrival Date: 11/01/2023 Time: 14:55 Bed 4 Private MD: ED Physician Gallo Christine HPI: 10/31 15:40 This 32 yrs old Male presents to ER via Wheelchair with complaints of cp Abdominal Pain. 15:40 The patient presents with abdominal pain in the left lower quadrant. Onset: The cp symptoms/episode began/occurred this morning. The symptoms do not radiate. Associated signs and symptoms: Pertinent positives: fever, nausea, vomiting, Pertinent negatives: blood in stools, constipation, diarrhea, testicular pain. The symptoms are described as constant. Severity of pain: in the emergency department the pain is unchanged despite home interventions. The patient has been recently seen at an urgent care, today, for similar complaints, and was sent to the [facility] Emergency Department for further evaluation. Historical: - Allergies: 15:23 No Known Allergies; kd3 - Home Meds: 17:27 None [Active]; aa5 - PMHx: 17:27 None; aa5 - Immunization history:: Adult Immunizations up to date. - Social history:: Smoking status: Reported history of juuling and/or vaping. ROS: 15:45 Constitutional: Positive for body aches, chills, fever, cp 15:45 Eyes: Negative for injury, pain, redness, and discharge, cp 15:45 ENT: Negative for drainage from ear(s), ear pain, sore throat, difficulty swallowing, difficulty handling secretions, 15:45 Respiratory: Negative for cough, shortness of breath, wheezing, 15:45 Abdomen/GI: Positive for abdominal pain, nausea and vomiting, Negative for diarrhea, constipation, black/tarry stool, rectal bleeding, 15:45 Back: Negative for pain at rest, pain with movement, 15:45 : Negative for urinary symptoms, testicular pain 15:45 Neuro: Negative for altered mental status, headache, weakness, 15:45 All other systems are negative, Exam: 15:50 Constitutional: The patient appears in no acute distress, alert, awake, non-toxic, well cp developed, well nourished, febrile, uncomfortable, 15:50 Head/Face: Normocephalic, atraumatic. cp 15:50 Eyes: Periorbital structures: appear normal, Conjunctiva: normal, no exudate, no injection, Sclera: no appreciated abnormality, Lids and lashes: appear normal, bilaterally, 15:50 ENT: External ear(s): are unremarkable, Nose: is normal, Mouth: Lips: moist, Oral mucosa: moist, Posterior pharynx: Airway: no evidence of obstruction, patent, 15:50 Chest/axilla: Inspection: normal, Palpation: is normal, no crepitus, no tenderness, 15:50 Cardiovascular: Rate: tachycardic, Rhythm: regular, 15:50 Respiratory: the patient does not display signs of respiratory distress, Respirations: normal, no use of accessory muscles, no retractions, labored breathing, is not present, Breath sounds: are clear throughout, no decreased breath sounds, no stridor, no wheezing, 15:50 Abdomen/GI: Inspection: abdomen appears normal, Bowel sounds: active, all quadrants, Palpation: soft, in all quadrants, severe abdominal tenderness, in the left lower quadrant, rebound tenderness, is not appreciated, voluntary guarding, is elicited in the left lower quadrant, 15:50 Back: CVA tenderness, is absent, 15:50 Neuro: Orientation: to person, place \T\ time. Mentation: is normal, Motor: moves all fours, strength is normal, Vital Signs: 15:22 BP 128 / 76; Pulse 114; Resp 16; Temp 100.5; Pulse Ox 98% ; Weight 91.17 kg; Height 5 kd3 ft. 9 in. ; 15:28 Pulse 121; kd3 17:27 Pulse 100; Resp 18 S; Temp 100.9(O); Pulse Ox 97% on R/A; aa5 18:31 BP 129 / 74; Pulse 92; Resp 20 S; Temp 100.4(O); Pulse Ox 99% on R/A; aa5 19:00 BP 117 / 71; Pulse 87; Resp 17 S; Pulse Ox 97% on R/A; ha1 20:10 BP 117 / 71; Pulse 79; Resp 18; Temp 98.5(O); Pulse Ox 97% on R/A; nj1 21:40 BP 111 / 70; Pulse 67; Resp 17; Pulse Ox 97% on R/A; nj1 15:22 Body Mass Index 29.68 (91.17 kg, 175.26 cm) kd3 MDM: 15:30 Patient medically screened. 17:00 Differential diagnosis: appendicitis, diverticulitis, non-specific abd pain, cp Pyelonephritis, Testicular Torsion, Ureterolithiasis, urinary tract infection. 18:10 Data reviewed: vital signs, nurses notes, lab test result(s), radiologic studies, CT cp scan. Management of patient was discussed with the following: School Cleaner: DR Serra who recommends transfer for urology services after discussing CT results. 20:00 ED course: consult with DR Dupont, urology, and DR Prather, general surgery done with cp [facility] 03 15:32 Order name: Blood Culture Adult (2) 10/31 15:32 Order name: CBC with Diff; Complete Time: 17:32 10/31 17:32 Interpretation: Normal except: WBC 13.70; ANGUS% 90.1; LYM% 5.5; NEUT A 12.4. 10/31 15:32 Order name: CMP; Complete Time: 17:41 10/31 17:41 Interpretation: Normal except: NA 132; GLUC 113; GLOB 4.6; A/G 0.7. 10/31 15:32 Order name: Lactate w/ 2H reflex if indic.; Complete Time: 18:09 10/31 15:32 Order name: Protime (+inr); Complete Time: 17:32 10/31 17:32 Interpretation: Abnormal: PT 17.1. 10/31 15:32 Order name: Ptt, Activated; Complete Time: 17:32 10/31 17:32 Interpretation: Reviewed. 10/31 15:32 Order name: SARS RAPID; Complete Time: 18:09 10/31 15:32 Order name: Lipase; Complete Time: 17:41 10/31 17:01 Order name: CREATININE WHOLE BLOOD; Complete Time: 17:32 EDMS 10/31 15:32 Order name: CT Abd/Pelvis - IV Contrast Only; Complete Time: 17:32 03 17:33 Interpretation: Report reviewed. 10/31 15:32 Order name: EKG; Complete Time: 15:33 10/31 15:32 Order name: Accucheck; Complete Time: 18:24 cp 10/31 15:32 Order name: Cardiac monitoring; Complete Time: 18:24 cp 10/31 15:32 Order name: EKG - Nurse/Tech; Complete Time: 17:27 cp 10/31 15:32 Order name: IV Saline Lock - Large Bore; Complete Time: 17:14 cp 10/31 15:32 Order name: Labs collected and sent; Complete Time: 17:14 cp 10/31 15:32 Order name: O2 Per Protocol; Complete Time: 17:14 cp 10/31 15:32 Order name: O2 Sat Monitoring; Complete Time: 18:24 cp 10/31 15:32 Order name: Vital Signs; Complete Time: 18:24 cp 10/31 17:40 Order name: NPO; Complete Time: 17:50 cp Administered Medications: 17:18 Drug: NS 0.9% IV 1000 ml IV at 1 bolus Per protocol; 1000 mL bolus Route: IV; Rate: 1 aa5 bolus; Site: left upper arm; 17:56 Follow up: IV Status: Completed infusion; IV Intake: 1000ml aa5 17:56 Drug: Acetaminophen PO 1000 mg PO once Route: PO; aa5 18:31 Follow up: Response: No adverse reaction; Temperature is decreased aa5 17:56 Drug: NS 0.9% IV 1000 ml IV at 1 bolus Per protocol; 1000 mL bolus Route: IV; Rate: 1 aa5 bolus; Site: left upper arm; 18:31 Follow up: IV Status: Completed infusion; IV Intake: 1000ml aa5 20:00 Follow up: IV Status: Completed infusion; IV Intake: 1000ml nj1 18:57 Drug: Piperacillin-Tazobactam IVPB 3.375 grams IVPB once over 60 mins; (mix in NS 100 bp mL) Route: IVPB; Infused Over: 60 mins; Site: left antecubital; 20:00 Follow up: Response: No adverse reaction; IV Status: Completed infusion; IV Intake: nj1 100ml 18:57 Drug: morphine IVP or IV 4 mg IVP once over 4 mins Route: IVP; Infused Over: 4 mins; bp Site: left antecubital; 20:00 Follow up: Response: No adverse reaction; Pain is decreased nj1 18:58 Drug: metroNIDAZOLE IVPB 500 mg 100 ml IVPB once over 30 mins Volume: 100 ml; Route: bp IVPB; Infused Over: 30 mins; Site: left antecubital; 19:30 Follow up: Response: No adverse reaction; IV Status: Completed infusion; IV Intake: nj1 100ml Disposition: 11/01 07:15 Co-signature as Attending Physician, Gallo Christine MD I reviewed the patient's care rn provided by the Advanced Practice Provider and agree with the diagnosis and treatment plan. Disposition Summary: 11/01/23 18:19 Transfer Ordered Notes: Reason: Higher level of care cp Condition: Stable cp Problem: new cp Symptoms: have improved cp Transfer Location: [facility](11/01/23 19:52) cp Accepting Physician: DR Costa(11/01/23 22:31) [email or web address] Diagnosis - SARS-associated coronavirus as the cause of diseases classified elsewhere cp - Urinary Bladder Fistula cp - Diverticulitis of Sigmoid Colon with Perforation cp Forms: - Medication Reconciliation Form cp - SBAR form cp Signatures: Dispatcher [employer] EDMS Gallo Christine MD MD rn Calderon, Audri, RN RN aa5 Jah Smith PA PA cp Brice Diggs, RN RN Reanna Strickland RN RN kd3 David Mata RN RN [id number] Carlota Rock RN nj1 Corrections: (The following items were deleted from the chart) 10/31 18:20 18:19 Doctor cp cp 19:52 18:19 [facility] cp cp 19:52 18:20 Doctor cp cp 20:07 18:19 Diverticulitis of large intestine with perforation and abscess without bleeding cpcp 20:07 19:52 Doctor cp cp 21:23 15:33 Urinalysis+U.LAB.BRZ ordered. EDMS EDMS 22:31 20:07 DR Costa cp [id number]
[2023-11-01 22:58] VITALS: O2SAT 97
[2023-11-01 23:32] VITALS: BP 111/70; TEMP 98.5
== END ==
LOC: ER 14:55
DX: U07.1 COVID-19 (principal); K57.20 Diverticulitis of large intestine with perforation and abscess without bleeding; N32.2 Vesical fistula, not elsewhere classified
CPT/HCPCS: 87040 ×2; 85025; 36415; 85610; 82565; 83605; 85730; 83690; 80053; 74177; 87811; Q9967; J2543; J7030 ×2; 96361; 96365; 96375; 99285